=== PATIENT | female | born 2000 | race Caucasian/White ===

== ENCOUNTER 2018-05-09 18:06 | Emergency (ER) | payer BC ==
[2018-05-09 18:10] VITALS: TEMP 98.7
[2018-05-09 18:30] LABS: BASO % 0.3 % (0.0-2.0); EOS # 0.1 (0.0-0.7); EOS % 0.5 % (0-4.0); GRAN # 7.6 (1.4-6.5); GRAN % 57.5 % (42.2-75.2); HEMATOCRIT 37.8 % (35.0-45.0); HEMOGLOBIN 12.4 g/dl (12.0-15.0); LYMPH # 4.2 (1.2-3.4); LYMPH % 31.7 % (20.0-51.0); MEAN CELL VOLUME 86 fl (80.0-95.0); MEAN CORPUSCULAR HEMOGLOBIN 28 pg (26.0-32.0); MEAN CORPUSCULAR HGB CONC 33 g/dl (33.0-37.0); MEAN PLATELET VOLUME 10.8 fl (7.4-10.4); MONO # 1.3 (0.1-0.6); MONO % 9.8 % (1.7-9.3); PLATELET COUNT 269 K/mm3 (130-400); REDCELL DISTRIBUTION WIDTH-CV 12.5 % (11.5-14.5)
[2018-05-09] MEDS ORDERED: PROAIR HFA0.09 MG/AC IH (18:33)
[2018-05-09] MEDS ORDERED: BIRTH CONTROL PO (18:33)
[2018-05-09 18:40] LABS: ALBUMIN 4.2 gm/dL (3.5-5.0); BILIRUBIN,TOTAL 0.3 mg/dL (0.0-1.0); CALCIUM 9.5 mg/dL (8.4-10.2); CREATININE, serum 0.64 mg/dL (0.52-1.25); POTASSIUM 3.6 mmol/L (3.4-5.0)
[2018-05-09 18:53] LABS: STREP SCREEN NEGATIVE
[2018-05-09 18:54] LABS: HCG-QUALITATIVE URINE NEGATIVE
[2018-05-09] MEDS ORDERED: PREDNISONE20 MG PO (19:21)
[2018-05-09 19:34] VITALS: BP 118/74; PULSE 102
== END 2018-05-09 19:36 | disposition home or self-care (01) ==
LOC: COL.ER 18:06
PROVIDERS: Family Medicine
DX: J02.9 Acute pharyngitis, unspecified (principal); B27.90 Infectious mononucleosis, unspecified without complication
CPT/HCPCS: J1100; J1885; J7030

== ENCOUNTER 2019-05-14 00:40 | Observation (INO) | payer BC ==
[2019-05-14] VITALS (11 sets, daily range): BP systolic 108–124; BP diastolic 69–78; PULSE 80–92; TEMP 98.5–99.1
[~2019-05-14] VITALS: Ht 172.7 cm; Wt 86.3 kg
[~2019-05-14 00:40] MED LIST: BIRTH CONTROL PO; PREDNISONE20 MG PO; PROAIR HFA0.09 MG/AC IH
[2019-05-14 01:25] LABS: COLLECTION METHOD CLEAN CATCH
[2019-05-14 01:28] LABS: BASO % 0.2 % (0.0-2.0); EOS # 0.1 (0.0-0.7); GRAN # 9.3 (1.4-6.5); GRAN % 70.1 % (42.2-75.2); HEMATOCRIT 37.3 % (35.0-45.0); HEMOGLOBIN 12.3 g/dl (12.0-15.0); LYMPH # 2.9 (1.2-3.4); LYMPH % 21.6 % (20.0-51.0); MEAN CELL VOLUME 86 fl (80.0-95.0); MEAN CORPUSCULAR HEMOGLOBIN 29 pg (26.0-32.0); MEAN CORPUSCULAR HGB CONC 33 g/dl (33.0-37.0); MEAN PLATELET VOLUME 10.9 fl (7.4-10.4); MONO # 0.9 (0.1-0.6); MONO % 6.7 % (1.7-9.3); PLATELET COUNT 271 K/mm3 (130-400); RED BLOOD COUNT 4.32 M/mm3 (4.10-5.30); REDCELL DISTRIBUTION WIDTH-CV 12.3 % (11.5-14.5)
[2019-05-14 01:31] LABS: MUCOUS Present /lpf; PH 7 (5-8); URINE APPEARANCE Hazy; URINE BACTERIA Rare /hpf; URINE BILIRUBIN Negative (NEGATIVE); URINE BLOOD Negative (NEGATIVE); URINE COLOR Straw; URINE GLUCOSE Negative (NEGATIVE); URINE KETONE Negative (NEGATIVE); URINE LEUKOCYTE ESTERASE Negative (NEGATIVE); URINE NITRATE Negative (NEGATIVE); URINE PROTEIN(semi-quant) Negative (NEGATIVE); URINE RBC 0-2 /hpf; URINE UROBILINOGEN Negative (NEGATIVE)
[2019-05-14 01:42] LABS: ALANINE AMINOTRANSFERASE 13 U/L (9-52); ALBUMIN 4.4 gm/dL (3.5-5.0); ALKALINE PHOSPHATASE 46 U/L (50-136); ANION GAP 9 mmol/L (7-16); AST,SGOT 21 U/L (15-37); BILIRUBIN,TOTAL < 0.1 mg/dL (0.0-1.0); BLOOD UREA NITROGEN 13 mg/dL (7-17); C-REACTIVE PROTEIN 1.2 mg/dL (0.0-0.9); CALCIUM 9.4 mg/dL (8.4-10.2); CARBON DIOXIDE 24 mmol/L (22-30); CHLORIDE 105 mmol/L (98-107); CREATININE, serum 0.91 (0.52-1.25); GLUCOSE 104 mg/dL (74-106); POTASSIUM 3.8 mmol/L (3.4-5.0); SODIUM 138 mmol/L (137-145); TOTAL PROTEIN 7.7 gm/dL (6.4-8.2)
--- NOTE | 2019-05-14 03:59 | NUR ---
Brought to floor by ER via wheelchair. Assisted into bed. Denies pain, N/V. Connected IV fluids as ordered. Patient denies further needs.
[2019-05-14] MEDS ORDERED: LEXAPRO 10MG10 MG PO (04:02)
--- NOTE | 2019-05-14 05:14 | NUR ---
Lying in bed. Boyfriend in room at bedside. Voices no needs or concerns at this time.
--- NOTE | 2019-05-14 10:30 | NUR ---
Patient has been doing well this am. She just showered for surgery. Family is at bedside. Patient denies pain and nausea. No other changes at this time. Explained that her surgery should be around 1230-1pm. Call light within reach.
--- NOTE | 2019-05-14 10:35 | NUR ---
GAYLA met with the patient and her dad to discuss a discharge plan. The patient lives in [place] with three roommates and attends college at [employer]. The patient does not use DME and reports independence with ADLs. The patient's PCP is Dr. Morales and Tim Laguna and patient receives medications from [facility]. The patient inquired about a doctors note for the [employer] [place]. GAYLA informed the patient's nurse. The patient does not have advance directives in the EMR but was interested in obtaining a DPOA-HC. The patient plans to return home to with her family to recover then return to [employer] next week. There are no addtional needs at this time.
--- NOTE | 2019-05-14 10:48 | NUR ---
Initial visit; Patient thanked [employer] Service Operator for looking in on her and offering God's blessings.
--- NOTE | 2019-05-14 12:30 | NUR ---
Patient has left the unit for surgery. Consent signed and on chart. Pre-ops given. Family with patient.
[2019-05-14] MEDS ORDERED: ULTRAM 50MG TAB50 MG PO (14:22)
[2019-05-14] MEDS ORDERED: MOTRIN 600600 MG/TAB PO (14:23)
[2019-05-14] MEDS ORDERED: COLACE 100100 MG/CAP PO (14:23)
[2019-05-14] MEDS ORDERED: School Release (14:25)
--- NOTE | 2019-05-14 15:30 | NUR ---
Patient is back from surgery. She is alert but feels a little out of it from the surgery. She denies pain and nausea at this time. No other changes at this time. Call light within reach. Discussed discharge plan. Patient verbalized understanding. Family is at bedside. No other changes at this time. Call light within reach.
--- NOTE | 2019-05-14 19:20 | NUR ---
Pt. sitting up in bed with family at bedside. Pt. is A&OX3, assessment complete. INT to rt. ac patent. Pt. has met discharge criteria. Will complete discharge paperwork.
--- NOTE | 2019-05-14 19:47 | NUR ---
Pt. given discharge instructions, med list, education, health summary, note from for school, and follow-up appointment info. Pt. voices understanding. Pt. denies questions. INT discontinued from rt. AC. Pt. escorted out by wheelchair with ERIKA Ross.
== END 2019-05-14 19:30 | disposition home or self-care (01) ==
LOC: COL.ER 00:40 → SURG 02:47
PROVIDERS: Emergency Medicine; ADMIT Surgery
DX: K35.80 Unspecified acute appendicitis (principal); J45.909 Unspecified asthma, uncomplicated; Z88.1 Allergy status to other antibiotic agents; Z88.2 Allergy status to sulfonamides; Z79.899 Other long term (current) drug therapy
CPT/HCPCS: G0378; J1100; J1885; J2175; J2270; J2405; J2543; J2704; J2710; J3010; J7030; J7120; Q9967